=== PATIENT | male | born 1990 | race Caucasian/White ===

== ENCOUNTER 2020-06-22 20:36 | Emergency (ER) | payer SELFPAY ==
[~2020-06-22] VITALS: Ht 188 cm; Wt 79.5 kg
[2020-06-22 21:05] VITALS: BP 109/65
--- NOTE | 2020-06-22 21:47 | RAD ---
Examination: XR KNEE _3 VIEWS_LT History: Reason: superior L knee pain after fall / Spl. Instructions: / History: Comparison/Correlation: None Findings: 3 images of the left knee were obtained. Mild spurring is present about the medial and lateral compartments. Moderate-sized simple knee joint effusion is present. No acute fracture or bone destruction. Impression: Joint effusion. No fracture visualized. Electronically signed by: Howard Gilmore MD (06/22/2020 9:45 PM) [facility]
[2020-06-22] MEDS ORDERED: NAPR-514 PO (21:57)
--- NOTE | 2020-06-22 21:58 | ED.ADGEN ---
Past Medical History Past Medical History: No Pertinent History Past Surgical History: No Surgical History Smoking Status: Current Every Day Smoker Additional Information: 0.5/ppd Alcohol Use: None General Adult EDM: Chief Complaint: LOWER EXT PAIN HPI: HPI: Patient is a 30 year old male who presents to the emergency department with complaints of superior left knee pain. Patient states that he tripped and fell down 4-5 wooden steps this evening at 8 PM. Patient states he landed on his knee he has been able to bear weight on the affected extremity but states he has only been able to ambulate with limping. He currently rates his pain a 6 out of 10 on the pain scale, he denies any numbness, tingling, weakness, or instability of the joint. Review of Systems: Review of Systems: Complete ROS is negative unless otherwise noted in HPI. Physical Exam: PE: See Above Constitutional: Well developed, well nourished, no acute distress, non-toxic appearance. [] HENT: Normocephalic, atraumatic, bilateral external ears normal, nose normal. [] Eyes: PERRLA, EOMI, conjunctiva normal, no discharge. [] Neck: Normal range of motion, no stridor. [] Cardiovascular:Heart rate regular rhythm Lungs & Thorax: Respirations even and unlabored, no retractions, no respiratory distress Skin: Warm, dry, no erythema, no rash; bruise noted to superior left knee, no abrasion. [] Extremities: Left knee: Superior anterior tenderness to palpation without crepitus or obvious deformity, negative anterior/posterior drawer testing, no cyanosis, ROM intact, 1+ edema Neurologic: Alert and oriented X 3, no focal deficits noted. [] Psychologic: Affect normal, judgement normal, mood normal. [] Current Patient Data: Vital Signs: Vital Signs Date Time Temp Pulse Resp B/P (MAP) Pulse Ox O2 Delivery O2 Flow Rate FiO2 06/22/20 21:05 98.4 75 20 109/65 (80) 99 Room Air 98.4 EKG: EKG: [] Heart Score: Risk Factors: Risk Factors: DM, Current or recent (<one month) smoker, HTN, HLP, family history of CAD, obesity. Risk Scores: Score 0 - 3: 2.5% MACE over next 6 weeks - Discharge Home Score 4 - 6: 20.3% MACE over next 6 weeks - Admit for Clinical Observation Score 7 - 10: 72.7% MACE over next 6 weeks - Early Invasive Strategies Radiology/Procedures: Radiology/Procedures: PROCEDURE: KNEE LEFT 3V Examination: XR KNEE _3 VIEWS_LT History: Reason: superior L knee pain after fall / Spl. Instructions: / History: Comparison/Correlation: None Findings: 3 images of the left knee were obtained. Mild spurring is present about the medial and lateral compartments. Moderate- sized simple knee joint effusion is present. No acute fracture or bone destruction. Impression: Joint effusion. No fracture visualized. [] Course & Med Decision Making: Course & Med Decision Making Pertinent Labs and Imaging studies reviewed. (See chart for details) [] Dragon Disclaimer: Dragon Disclaimer: This electronic medical record was generated, in whole or in part, using a voice recognition dictation system. Departure Departure Impression: Primary Impression: Contusion of left knee, initial encounter Additional Impression: Effusion, left knee Disposition: 01 DC HOME SELF CARE/HOMELESS Condition: STABLE Referrals: NO PCP (PCP) J LUIS BELTRE II, MD Patient Instructions: Knee Effusion, [id number] Additional Instructions: Fill the prescription and take it as directed, you can also take Tylenol as needed for pain. Recommend application of ice, elevation, and rest of affected extremity. Wear the jim wrap and crutches as needed, weightbearing as tolerated. Follow-up with Dr. Beltre's office this week, return to the ER if your symptoms worsen. Scripts Ibuprofen (IBUPROFEN) 800 Mg Tablet 800 MG PO PRN Q6HRS PRN for PAIN for 5 Days, #20 TAB 0 Refills Prov: SAM SALMON APRN 06/22/20 Splinting Splinting : Location: L knee Pre-Made Type: velcro (jim wrap) Pre-Proc Neuro Vasc Exam: normal Post-Proc Neuro Vasc Exam: normal, unchanged from pre-exam Problem Qualifiers SAM SALMON APRN Jun 22, 2020 21:58
[2020-06-22] MEDS ORDERED: IBUP-1060 PO (22:09)
== END 2020-06-22 22:10 | disposition home or self-care (01) ==
LOC: ER 20:36
DX: S80.02XA Contusion of left knee, initial encounter (principal); M25.462 Effusion, left knee; F17.200 Nicotine dependence, unspecified, uncomplicated; W01.0XXA Fall on same level from slipping, tripping and stumbling without subsequent striking against object, initial encounter; Y93.89 Activity, other specified; Y92.89 Other specified places as the place of occurrence of the external cause; Y99.8 Other external cause status
CPT/HCPCS: 73562; 99283